=== PATIENT | female | born 1980 ===

== ENCOUNTER 2020-03-08 13:49 | Emergency (ER) | payer OTHER ==
[~2020-03-08] VITALS: Ht 162.6 cm; Wt 95.3 kg
[2020-03-08] MEDS ORDERED: DICLOFENAC SODI75 MG PO (17:29)
== END 2020-03-08 17:52 | disposition home or self-care (01) ==
LOC: ER 13:49
DX: S93.402A Sprain of unspecified ligament of left ankle, initial encounter (principal); S30.0XXA Contusion of lower back and pelvis, initial encounter; X50.0XXA Overexertion from strenuous movement or load, initial encounter; Y93.89 Activity, other specified; Y92.89 Other specified places as the place of occurrence of the external cause; Y99.8 Other external cause status